=== PATIENT | male | born 1960 | race Caucasian/White ===

== ENCOUNTER 2024-05-26 15:51 | Emergency (ER) | payer SELFPAY ==
[~2024-05-26] VITALS: Ht 167.6 cm; Wt 87.0 kg
[2024-05-26 15:58] VITALS: O2SAT 95
[2024-05-26] MEDS: ACETAMINOPHEN 325MG TABLET PO ONE (17:16)
[2024-05-26] MEDS: IBUPROFEN 600MG TABLET PO ONE (18:43)
[2024-05-26] MEDS: METHOCARBAMOL 500MG TABLET PO ONE (18:43)
[2024-05-26] MEDS ORDERED: IBUP-2029 MT (19:36)
[2024-05-26] MEDS ORDERED: METH-653 MT (19:37)
[2024-05-26 19:45] VITALS: BP 157/89; PULSE 74; RESP 18; TEMP 98.2
== END 2024-05-26 20:15 | disposition home or self-care (01) ==
LOC: ER 15:51
DX: S20.212A Contusion of left front wall of thorax, initial encounter (principal); S00.83XA Contusion of other part of head, initial encounter; S09.8XXA Other specified injuries of head, initial encounter; E11.9 Type 2 diabetes mellitus without complications; I10 Essential (primary) hypertension; Y04.0XXA Assault by unarmed brawl or fight, initial encounter; Y93.89 Activity, other specified; Y92.89 Other specified places as the place of occurrence of the external cause; Y99.8 Other external cause status
CPT/HCPCS: 70486; 71101; 99284